=== PATIENT | male | born 1965 | race Caucasian/White ===

== ENCOUNTER 2024-09-03 11:36 | Outpatient (CLI) | payer OTHER ==
[~2024-09-03 11:36] MED LIST: AMBIEN10 MG PO; CIPRO750 MG PO; Colace 100MG PO
== END 2024-09-03 11:45 | disposition home or self-care (01) ==
LOC: RAD 11:36
PROVIDERS: ATTEND Orthopaedic Surgery
DX: M25.561 Pain in right knee (principal); M25.562 Pain in left knee

== ENCOUNTER 2024-09-16 10:36 | Outpatient (CLI) | payer OTHER | END 2024-09-16 10:40 | disposition home or self-care (01) | LOC: RAD 10:36 | PROVIDERS: ATTEND Orthopaedic Surgery | DX: M54.50 Low back pain, unspecified (principal) ==